=== PATIENT | male | born 1970 | race Caucasian/White ===

== ENCOUNTER 2020-05-18 01:57 | Outpatient (CLI) | payer OTHER, SELFPAY ==
--- NOTE | 2020-05-18 | DI.MRI_ITS ---
EXAM: MR LUMBAR SPINE WO CLINICAL HISTORY: RADICULOPATHY LUMBAR REGION,M54.16,RT SIDED LOW BACK PAIN,RT HIP AND GROIN. TECHNIQUE: Multiplanar multisequence MRI of the Lumbar spine was performed. COMPARISON: No exams were available for comparison FINDINGS: Bones: The last intervertebral disc space is designated the L5/S1 level for the numbering purpose of this examination. The vertebral body heights are well maintained. Alignment is satisfactory. The si gnal characteristics are unremarkable. Cord: The conus tip ends at the T12 level. It is of normal size and signal intensity. T12-L1: No disc herniations or bulges are present. No central spinal canal or neural foraminal stenos is. L1-2: No disc herniations or bulges are present. No central spinal canal or neural foraminal stenosis . L2-3: No disc herniations or bulges are present. No central spinal canal or neural foraminal stenosis . L3-4: No disc herniations or bulges are present. There is a well-circumscribed round lesion projectin g into the spinal canal measuring 1.4 cm transverse by 1.2 cm AP x 1.2 cm craniocaudad. It follows C SF on all pulse sequences. It appears to have a beak connecting it to the adjacent right facet joint . It is most suggestive of a synovial cyst. It compresses the thecal sac to the left causing centra l spinal canal stenosis.It compresses the right L4 nerve root. L4-5: No disc herniations or bulges are present. No central spinal canal or neural foraminal stenosis . L5-S1: No disc herniations or bulges are present. No central spinal canal or neural foraminal stenosi s. Soft tissues: The visualized SI joints and sacrum are well maintained. The paraspinal soft tissues ar e unremarkable. IMPRESSION: Findings suggestive of a 1.4 x 1.2 x 1.2 cm synovial cyst arising from the right facet joint at L3-4 level. It projects into the central spinal canal causing central spinal canal stenosis and compressi on of the right L4 nerve root. A disc herniation or nerve sheath tumor are considered less likely bu t cannot be entirely excluded. DATA REPOSITORY:
== END 2020-05-18 02:17 ==
PROVIDERS: Visit Provider Internal Medicine
DX: M54.16 Radiculopathy, lumbar region (principal); M25.551 Pain in right hip
CPT/HCPCS: 72148

== ENCOUNTER 2020-05-31 18:00 | Outpatient (CLI) | payer OTHER, SELFPAY ==
--- NOTE | 2020-05-31 11:40 | DI.MRI_ITS ---
EXAM: MR LUMBAR SPINE W CLINICAL HISTORY: F/U ABNL MRI,RT L3-4 CYSTIC STRICTURE, ? SYNOVIAL CYST TECHNIQUE: Fat-suppressed T1 axial and sagittal sequences were performed pre and post IV Dotarem.. CONTRAST MATERIAL: IV Contrast: 19 mL of Dotarem contrast administered. COMPARISON: MR MR LUMBAR SPINE WO from 05/18/2020 FINDINGS: There is no evidence of enhancement of the circumscribed cystic area seen at the L3-4 level. It eman ates from the right SI joint which shows degenerative changes. There is no evidence of suspicious en hancement elsewhere in the spine.. IMPRESSION: Findings are consistent with a 14 millimeter right sided facet joint synovial cyst. DATA REPOSITORY:
[2020-05-31] MEDS: Gadoterate meglumine 20 ML VIAL 10 ML IVP ×2 (11:41→11:42)
== END 2020-05-31 18:20 ==
PROVIDERS: Visit Provider Internal Medicine
DX: M71.38 Other bursal cyst, other site
CPT/HCPCS: 72149

== ENCOUNTER 2020-09-08 03:02 | Outpatient (CLI) | payer OTHER, SELFPAY ==
--- NOTE | 2020-09-08 08:50 | DI.MRI_ITS ---
EXAM: MR LUMBAR SPINE WO CLINICAL HISTORY: SYNOVIAL CYST LUMBAR FACET JOINT,M71.38,RADICULOPATHY,M54.15. TECHNIQUE: Multiplanar multisequence MRI of the Lumbar spine was performed. COMPARISON: MR MR LUMBAR SPINE WO from 05/18/2020 MR MR LUMBAR SPINE W from 05/31/2020 FINDINGS: The examination is limited due to patient motion artifact. Bones: The last intervertebral disc space is designated the L5/S1 level for the numbering purpose of this examination. The vertebral body heights are well maintained. Alignment is satisfactory. The si gnal characteristics are unremarkable. Cord: The conus tip ends at the T12 level. It is of normal size and signal intensity. T12-L1: No disc herniations or bulges are present. No central spinal canal or neural foraminal stenos is. L1-2: No disc herniations or bulges are present. No central spinal canal or neural foraminal stenosis . L2-3: No disc herniations or bulges are present. No central spinal canal or neural foraminal stenosis . L3-4: There is a mild diffuse disc bulge. There are degenerative changes seen at the facets. There is again seen a cystic structure projecting into the spinal canal at the L3-4 level. It measures 1.4 cm AP x 1.0 cm transverse by 1.5 cm craniocaudad. It is homogeneously hyperintense on the T2 weight ed images. It lies adjacent to the right facet joint and likely reflects a synovial cyst. It compre sses the thecal sac and displaces the thecal sac to the left. There is right lateral recess stenosis with compression of the right L4 nerve root. No neural foraminal stenosis is present. L4-5: No disc herniations or bulges are present. No central spinal canal or neural foraminal stenosis . L5-S1: No disc herniations or bulges are present. No central spinal canal or neural foraminal stenosi s. Soft tissues: The visualized SI joints and sacrum are well maintained. The paraspinal soft tissues ar e unremarkable. IMPRESSION: 1. 1.4 x 1.0 x 1.5 cm cystic lesion at the L3-4 level which appears to represent a synovial cyst. It in conjunction with a diffuse disc bulge and degenerative changes causes central spinal canal stenos is displacing the thecal sac to the left. It also appears to compress the right L4 nerve root second xuan to right lateral recess stenosis. DATA REPOSITORY:
== END 2020-09-08 03:22 ==
PROVIDERS: Visit Provider Orthopaedic Surgery Orthopaedic Surgery of the Spine
DX: M47.816 Spondylosis without myelopathy or radiculopathy, lumbar region (principal); M51.87 Other intervertebral disc disorders, lumbosacral region
CPT/HCPCS: 72148

== ENCOUNTER 2020-09-08 03:03 | Outpatient (CLI) | payer OTHER, SELFPAY ==
--- NOTE | 2020-09-08 09:13 | DI.RAD_ITS ---
EXAM: XR LUMBAR SPINE COMPLETE CLINICAL HISTORY: PREOP, SYNOVIAL CYST, M71.30. TECHNIQUE: 2D digital imaging was performed. COMPARISON: No exams were available for comparison FINDINGS: There is normal alignment of the lumbar spine. Small osteophytes are seen at L4-L5. The vertebral b odies disc spaces and posterior elements are otherwise well maintained. No spondylolisthesis or spon dylolysis is present. No significant subluxation is seen with flexion or extension. No acute fractu re is identified. The soft tissues are unremarkable. IMPRESSION: Minimal degenerative changes in the lumbar spine. DATA REPOSITORY: RADIATION DOSE DELIVERED:
== END 2020-09-08 03:23 ==
DX: M25.78 Osteophyte, vertebrae (principal); M71.38 Other bursal cyst, other site
CPT/HCPCS: 72110

== ENCOUNTER 2020-09-08 04:06 | Outpatient (CLI) | payer OTHER, SELFPAY ==
[2020-09-08 09:26] LABS: HCT 41.7 % (40.0-50.0); HGB 14.3 g/dL (13.5-17.5); MCH 30.7 pg (27.0-33.0); MCHC 34.3 % (32.0-36.0); MCV 89.5 fL (80-95); MPV 10.3 fL (8.0-11.0); Platelet Count 213 10^3/uL (130-400); RBC 4.66 10^6/uL (4.36-5.78); RDW 11.6 % (11.8-14.1); RDW-SD 37.4 fL; WBC 4.55 10^3/uL (4.4-10.8)
[2020-09-08 10:14] LABS: Anion Gap 7.1 mmol/L (3-11); BUN 14 mg/dL (7-18); CO2 28.9 mmol/L (21.0-32.0); Calcium 8.9 mg/dL (8.5-10.1); Chloride 102 mmol/L (98-107); Glucose 92 mg/dL (74-106); Potassium 4.5 mmol/L (3.5-5.1); Sodium 138 mmol/L (136-145)
== END 2020-09-08 04:07 | disposition home or self-care (01) ==
LOC: LBO 04:06
DX: Z01.818 Encounter for other preprocedural examination (principal)
CPT/HCPCS: 36415; 80048; 85027

== ENCOUNTER 2023-05-14 00:58 | Outpatient (CLI) | payer OTHER, SELFPAY ==
[2023-05-14 12:36] LABS: HCT 41.6 % (40.0-50.0); MCH 28.3 pg (27.0-33.0); MCHC 33.7 % (32.0-36.0); MCV 84 fL (80-95); MPV 11.2 fL (8.0-11.0); Platelet Count 217 10^3/uL (130-400); RBC 4.95 10^6/uL (4.36-5.78); RDW 14.1 % (11.8-14.1); RDW-SD 43.2 fL; WBC 4.83 10^3/uL (4.4-10.8)
[2023-05-14 13:12] LABS: ALT 37 U/L (16-63); AST 26 U/L (15-37); Albumin 3.8 g/dL (3.4-5.0); Alkaline Phosphatase 58 U/L (46-116); Anion Gap 8.7 mmol/L (3-11); BUN 17 mg/dL (7-18); Bilirubin, Total 0.6 mg/dL (0.2-1.0); CO2 27.3 mmol/L (21.0-32.0); CREATININE 1.1 mg/dL (0.70-1.30); Calcium 9.2 mg/dL (8.5-10.1); Calculated LDL 126 mg/dL (<100); Chloride 103 mmol/L (98-107); Cholesterol 214 mg/dL (<200); Estimated GFR 80.27 (mL/min/1.73m2); Glucose 84 mg/dL (74-106); HDL Cholesterol 74 mg/dL (40-60); Sodium 139 mmol/L (136-145); TSH (W/Ref FT4) 1.84 uIU/mL (0.36-3.74); Total Protein 7.7 g/dL (6.4-8.2); Triglyceride 72 mg/dL (<150); Vitamin B12 471 pg/mL (193-986)
[2023-05-15 11:13] LABS: Hepatitis C Ab w Rflx HCV PCR Negative (Negative)
[2023-05-15 11:24] LABS: HIV-1/2 Ag & Ab Screen Negative (Negative)
== END 2023-05-14 00:59 | disposition home or self-care (01) ==
LOC: LOS 00:58
PROVIDERS: PCP Nurse Practitioner Family; Visit Provider Nurse Practitioner Family
DX: R53.83 Other fatigue (principal); Z13.220 Encounter for screening for lipoid disorders; Z11.4 Encounter for screening for human immunodeficiency virus [HIV]; Z11.59 Encounter for screening for other viral diseases
CPT/HCPCS: 36415; 80053; 80061; 85027; 86803; 87389; 82607; 84443

== ENCOUNTER → 2023-06-17 01:04 | Outpatient (CLI) | payer OTHER, SELFPAY ==
--- NOTE | 2023-06-17 06:30 | ETT_ITS ---
APPROVED REPORT Exam: Exercise Treadmill Patient Location: Out-Patient Room/Bed: Stress Nurse: Taye Beltran RN Ordering Provider:DIAMANTE SINGH, Contact Number: [phone] BMI: 25.19 Baseline Rhythm: SB Indications: Bradycardia, fatigue. Medical History Medical History: No history of CAD Cardiac Medications: None Allergies: NKA Cardiac Risk Factors: None Previous Cardiac Procedures: None Pretest Chest Pain Characteristics: None Exercise History: Physically active Physical Disabilities: None Lung Sounds: Clear to auscultation Heart Sounds: Bradycardia, Regular. Stress Test Details Test: Exercise stress testing was performed using a Mansoor protocol. Rest Stress HR Resting HR Supine: 50 bpm Max Heart Rate (APMHR): 167 bpm Resting HR Standin bpm Target HR (85% APMHR): 142 bpm Max HR Achieved: 154 bpm % of APMHR: 92 Recovery HR: 55 bpm HR response to stress: Normal HR response to stress BP Resting BP Supine: 128/82 mmHg Resting BP Standin/84 mmHg Max BP: 180/80 mmHg Recovery BP: 120/70 mmHg BP response to stress: Normal blood pressure response to stress. ECG Resting ECG: Sinus Bradycardia Ectopy: none Stress ECG: Sinus Tachycardia ST Change: No significant ST segment changes noted Arrhythmia: None Recovery ECG: Sinus Bradycardia Recovery ST Change: No significant ST segment changes noted Recovery Arrhythmia: None Clinical Reason for Termination: Target HR Achieved Stress Symptoms: None Exercise duration: 10 min58 sec Highest Stage Reached: 3 Exercise capacity: 13.46 METs Angina Score: None Crouch Treadmill Score: 10.3 Rate Pressure Product: [id number] Stress ECG Conclusion 1. The resting electrocardiogram was within normal limits 2. Patient exercised on the Mansoor protocol and completed a workload of 13.46 METS 3. Normal heart rate and blood pressure response to exercise. The patient achieved 92% of predicted heart rate for age 4. There was no electrocardiographic evidence of myocardial ischemia 5. There were no significant dysrhythmias Crouch Treadmill Score is 10.3 which is Low risk.
== END ==
PROVIDERS: PCP Nurse Practitioner Family; Visit Provider Nurse Practitioner Family
DX: R00.1 Bradycardia, unspecified (principal); R11.0 Nausea; R53.83 Other fatigue
CPT/HCPCS: 93017

== ENCOUNTER 2024-03-05 02:55 | Outpatient (CLI) | payer SELFPAY ==
--- NOTE | 2024-03-05 08:32 | DI.RAD_ITS ---
Exam(s) XR KNEE RT 3V AP,LAT,THELMA EXAM: XR KNEE RT 3V AP,LAT,THELMA CLINICAL HISTORY: no improvement with PT, RT KNEE PAIN, M25.561. TECHNIQUE: 2D digital imaging was performed. Three views. COMPARISON: No exams were available for comparison FINDINGS: BONES: No acute fracture is present. No bony destructive lesion is seen. JOINTS: Moderate narrowing of the medial femoral tibial joint space. Mild periarticular spurring thr oughout, greatest at the patellofemoral joint. No joint effusion is seen. SOFT TISSUE: Normal. IMPRESSION: moderate degenerative changes. DATA REPOSITORY: RADIATION DOSE DELIVERED:
== END 2024-03-05 03:15 ==
LOC: DI 02:55
PROVIDERS: PCP Nurse Practitioner Family; Visit Provider Nurse Practitioner Family
DX: M17.11 Unilateral primary osteoarthritis, right knee
CPT/HCPCS: 73562

== ENCOUNTER 2024-03-13 00:39 | Outpatient (CLI) | payer BC, SELFPAY ==
--- NOTE | 2024-03-13 08:30 | DI.MRI_ITS ---
Exam(s) MR LOWER JOINT RT WO EXAM: MR LOWER JOINT RT WO CLINICAL HISTORY: no improvement with PT,rt knee pain, m25.561 TECHNIQUE: Multiplanar multisequence MRI of the knee was performed. COMPARISON: CR XR KNEE RT 3V AP,LAT,THELMA from 03/05/2024 FINDINGS: EFFUSION: There is a small joint effusion with some synovial thickening. There is no Carpio cyst in t he popliteal fossa. MARROW:There is no evidence of fracture but none there is subarticular signal abnormality in the lopez llofemoral compartment as described below as well as in the medial compartment. PATELLOFEMORAL COMPARTMENT: The quadriceps tendon is intact. The patellar ligament is intact. There is advanced full-thickness thinning of the retropatellar cartilage over the lateral facet with subarticular bone edema in the patella and anterior aspect of the lateral femoral condyle at this lev el and with opposing lateral osteophytes off both structures. Significantly less degenerative change of the cartilage is noted over the medial facet of the patella.There is no intraosseous signal to farmer ggest recent patellar dislocation. There are no patellar retinacular tears. CRUCIATE LIGAMENTS: The anterior cruciate ligament is intact.The posterior cruciate ligament is intac t. MEDIAL COMPARTMENT/MEDIAL MENISCUS: There is complex tear of the posterior horn of the medial meniscu s also involving the body. There is relative sparing of the anterior horn but there is an element of mild extrusion but no gutter descent. The tear extends to within 1.5 cm of the meniscal root. The meniscal root is otherwise intact.There is full-thickness articular cartilage thinning over a large p art of the main weight-bearing surface of the medial femoral condyle and there are marginal osteophyt es evident off the outer aspect of the medial condyle. There is mild-moderate subarticular bone teo a in the medial tibial plateau and subarticular medial femoral condyle. No distinct osteochondral de fects evident.. MEDIAL COLLATERAL LIGAMENT: Mild increased signal but no high-grade tear of this structure. LATERAL COMPARTMENT/LATERAL MENISCUS: There are no tears of the lateral meniscus evident and nomenisc al extrusion nor intrusion. There is more moderate articular cartilage loss and signal abnormality i n the lateral compartment when compared to the medial compartment. However, there also are marginal osteophytes of both the inner and outer aspects of the lateral femoral condyle. ILIOTIBIAL BAND: Intact LATERAL COLLATERAL LIGAMENT COMPLEX: The fibular collateral ligament is intact. The biceps femoris t endon is intact.Popliteus muscle and tendon are intact. IMPRESSION: 1. There is a complex tear of the posterior horn and body of the medial meniscus. 2. There is advanced articular cartilage loss over the main weight-bearing surface of the medial femo ral condyle and medial tibial plateau. Also marginal osteophytes. 3. There are moderate degenerative changes in the lateral compartment evident but without evidence of tear of the lateral meniscus. 4. 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 5. There are no cruciate nor significant collateral ligament tears. 6. There is a small-moderate size joint effusion with synovial thickening. There is no Carpio cyst i n the popliteal fossa. DATA REPOSITORY:
== END 2024-03-13 00:59 ==
LOC: DI 00:39
PROVIDERS: PCP Nurse Practitioner Family; Visit Provider Nurse Practitioner Family
DX: S83.231A Complex tear of medial meniscus, current injury, right knee, initial encounter (principal); X58.XXXA Exposure to other specified factors, initial encounter
CPT/HCPCS: 73721